=== PATIENT | female | born 1970 | race Caucasian/White ===

== ENCOUNTER 2021-05-11 00:49 | Inpatient (IN) | payer OTHER, BC ==
[2021-05-11] MEDS ORDERED: Ondansetron PF 4 MG/2 ML Vial IVP PRN (01:05)
[2021-05-11] MEDS ORDERED: Dextrose 50% Abboject 50 ML SYRINGE SLOW IVP PRN (01:05)
[2021-05-11] MEDS ORDERED: Dextrose 5% in Water 1,000 ML IV PRN (01:05)
[2021-05-11] MEDS ORDERED: TETANUS AND DIPHTHERIA TOX/PF 0.5 ML DISP.SYRIN IM ONE (01:05)
[2021-05-11] MEDS ORDERED: hydrALAZINE 20 MG/ML VIAL SLOW IVP PRN (01:05)
[2021-05-11] MEDS ORDERED: traMADol HCl 50 MG TAB PO PRN (01:10)
[2021-05-11 01:37] LABS: #Basophils 0.1 thou/uL (0.0-0.2); #Eosinphils 0.1 thou/uL (0.0-0.7); #Lymphocytes 1.8 thou/uL (1.20-3.40); #Monocytes 0.5 thou/uL (0.11-0.59); #Neutrophils 1.8 thou/uL (1.40-6.50); %Basophils 1.2 % (0.0-1.0); %Eosinophils 2.4 % (0.0-10.0); %Lymphocytes 42.2 % (21.0-51.0); %Monocytes 12.6 % (0.0-10.0); %Neutrophils 41.7 % (42.0-75.0); Hemoglobin 10.8 g/dL (12.0-16.0); Mean Corpuscular HGB CONC 34.6 g/dL (32.0-36.0); Mean Corpuscular Hemoglobin 31.7 pg (27.0-31.0); Mean Corpuscular Volume 91.6 fL (78.0-98.0); Mean Platelet Volume 7.7 fL (7.4-10.4); Platelet Count 215 thou/uL (130-400); RBC Distribution Width 13.9 % (11.5-14.5); Red Blood Cell (RBC) Count 3.42 mill/uL (4.20-5.40); White Blood Cell (WBC) Count 4.2 thou/uL (4.8-10.8)
[2021-05-11 01:48] LABS: INR-International Normal Ratio 1.1; PTT 29.6 sec (22.9-36.1); Prothrombin Time 14.1 sec (12.0-14.7)
[2021-05-11 01:58] LABS: ALT (SGPT) 33 U/L (8-55); AST (SGOT) 47 U/L (5-34); Albumin 3.6 g/dL (3.5-5.0); Alkaline Phosphatase 75 U/L (40-110); Anion Gap 13 mmol/L (10-20); BUN (Urea Nitrogen) 4 mg/dL (7.0-18.7); Bilirubin, Total 0.4 mg/dL (0.2-1.2); Calc. Creatinine Clearance 0 mL/min (70-130); Carbon Dioxide 25 mmol/L (22-29); Chloride 100 mmol/L (98-107); Globulin 2.6 g/dL (2.4-3.5); Glucose 75 mg/dL (70-105); Lipase 8 U/L (8-78); Magnesium 1.9 mg/dL (1.6-2.6); Potassium 3.9 mmol/L (3.5-5.1); Protein, Total 6.2 g/dL (6.0-8.3); Sodium 134 mmol/L (136-145)
[2021-05-11 02:14] LABS: BHCG - Serum Negative (NEGATIVE); Pregs Control Background? CLEAR/WHITE (CLR/WHITE); Pregs Control Bar Appear? YES (CONTROL BAR)
[2021-05-11 02:26] LABS: Bilirubin Negative (Negative); Blood, Urine Negative (Negative); Clarity Clear (Clear); Glucose, Urine (Dipstick) Normal (Negative); Ketone, Urine Trace mg/dL (Negative); Leukocyte Negative Leu/uL (Negative); Nitrite Negative (Negative); Protein, Urine (Dipstick) Negative (Neg-Trace); Specific Gravity, Urine 1.031 (1.002-1.036); Urobilinogen Normal mg/dL (Less than 2)
[2021-05-11] MEDS: Acetaminophen 500 MG TAB PO SCH ×4 (02:27→21:31)
[2021-05-11] MEDS ORDERED: Acetaminophen 500 MG TAB ONE ×3 (02:29→13:28)
[2021-05-11] MEDS ORDERED: Boostrix 0.5 ML (Tdap) VIAL ONE ×2 (02:29→02:36)
[2021-05-11] MEDS ORDERED: Levothyroxine Sodium 112 MCG TAB PO SCH (06:00)
[2021-05-11] MEDS ORDERED: traMADol HCl 50 MG TAB ONE ×2 (06:49→12:00)
[2021-05-11 07:13] LABS: Hemoglobin 10.9 g/dL (12.0-16.0)
[2021-05-11] MEDS: Famotidine 20 MG TAB PO SCH ×2 (09:30→21:30)
[2021-05-11] MEDS ORDERED: D5 1/2 NS w/20 mEq KCL 0 ML ONE (11:54)
[2021-05-11] MEDS ORDERED: Morphine 4 MG/ML VIAL ONE (11:54)
[2021-05-11] MEDS: traMADol HCl 50 MG TAB PO PRN ×2 (12:03→21:31)
[2021-05-11 18:20] VITALS: BMI 19.0
[2021-05-11] MEDS: Bupropion 150 MG XL TAB PO SCH (21:30)
[2021-05-12] MEDS: Acetaminophen 500 MG TAB PO SCH ×2 (01:37→08:49)
[2021-05-12] MEDS: traMADol HCl 50 MG TAB PO PRN (04:12)
[2021-05-12] MEDS ORDERED: Levothyroxine Sodium 112 MCG TAB PO SCH (06:00)
[2021-05-12 06:40] LABS: Mean Corpuscular HGB CONC 33.7 g/dL (32.0-36.0); Mean Corpuscular Hemoglobin 31.1 pg (27.0-31.0); Mean Corpuscular Volume 92.3 fL (78.0-98.0); Mean Platelet Volume 7.8 fL (7.4-10.4); Platelet Count 215 thou/uL (130-400); RBC Distribution Width 13.7 % (11.5-14.5); Red Blood Cell (RBC) Count 3.53 mill/uL (4.20-5.40); White Blood Cell (WBC) Count 3.8 thou/uL (4.8-10.8)
[2021-05-12] MEDS: Bupropion 150 MG XL TAB PO SCH (08:50)
[2021-05-12] MEDS ORDERED: FLUoxetine HCl 20 MG CAP PO SCH (09:00)
[2021-05-12] MEDS ORDERED: Rivaroxaban 10 MG TAB PO SCH (09:00)
[2021-05-12] MEDS ORDERED: Prevnar 13-Val Conj/PF 0.5 ML SYRINGE IM ONE (09:00)
[2021-05-12 12:30] VITALS: BP 145/93; TEMP 98.1
[2021-05-13] MEDS ORDERED: Rivaroxaban 10 MG TAB PO SCH (08:00)
== END 2021-05-12 12:40 | disposition home or self-care (01) | DRG 816 ==
LOC: ERS 00:49 → ERHOLD 01:10 → SURG B 16:10
PROVIDERS: ADMIT Specialist; ATTEND Surgery
PROC: 0HQ1XZZ Repair Face Skin, External Approach (ICD-10-PCS; principal; 2021-05-11)
DX: S36.030A Superficial (capsular) laceration of spleen, initial encounter (principal); E03.9 Hypothyroidism, unspecified; S01.81XA Laceration without foreign body of other part of head, initial encounter; Z23 Encounter for immunization; Z79.01 Long term (current) use of anticoagulants; Z86.718 Personal history of other venous thrombosis and embolism; Z86.711 Personal history of pulmonary embolism; Z90.49 Acquired absence of other specified parts of digestive tract; Z79.899 Other long term (current) drug therapy; Z79.890 Hormone replacement therapy; V43.62XA Car passenger injured in collision with other type car in traffic accident, initial encounter; Y92.410 Unspecified street and highway as the place of occurrence of the external cause
CPT/HCPCS: 36415; 71045; 80053; 81003; 83690; 83735; 84703; 85027; 85610; 85730; 86850; 86900; 86901; 90471; 90714; 90715; G0390; J2270; J3480